=== PATIENT | male | born 1940 | race Two or more races ===

== ENCOUNTER → 2018-09-22 | Outpatient (CLI) | payer OTHER ==
[~2018-09-22] MED LIST: ASA81 MG; DETROL2 MG; METFORMIN HYDRO25 GM
== END | disposition home or self-care (01) ==
LOC: SONOGRAMA 07:15 → RAD 07:15
DX: R10.9 Unspecified abdominal pain (principal); M19.041 Primary osteoarthritis, right hand; M19.071 Primary osteoarthritis, right ankle and foot

== ENCOUNTER 2019-07-04 08:15 | Outpatient (CLI) | payer OTHER | END 2019-07-04 08:19 | disposition home or self-care (01) | LOC: RAD 08:15 | DX: M19.90 Unspecified osteoarthritis, unspecified site (principal) ==

== ENCOUNTER 2020-07-17 07:47 | Outpatient (CLI) | payer OTHER | END 2020-07-17 07:48 | disposition home or self-care (01) | LOC: RAD 07:47 | PROVIDERS: ATTEND Neuromusculoskeletal Medicine, Sports Medicine | DX: J44.9 Chronic obstructive pulmonary disease, unspecified (principal) ==

== ENCOUNTER 2021-01-14 07:25 | Outpatient (CLI) | payer OTHER | END 2021-01-14 07:33 | disposition home or self-care (01) | LOC: RAD 07:25 | PROVIDERS: ATTEND Neuromusculoskeletal Medicine, Sports Medicine | DX: M25.512 Pain in left shoulder (principal); M25.511 Pain in right shoulder; M19.09 Primary osteoarthritis, other specified site ==

== ENCOUNTER 2021-03-04 10:47 | Outpatient (CLI) | payer OTHER | END 2021-03-04 10:52 | disposition home or self-care (01) | LOC: TOM 10:47 | PROVIDERS: ATTEND Neuromusculoskeletal Medicine, Sports Medicine | DX: K57.90 Diverticulosis of intestine, part unspecified, without perforation or abscess without bleeding (principal); R10.84 Generalized abdominal pain; Q61.01 Congenital single renal cyst; I70.8 Atherosclerosis of other arteries ==

== ENCOUNTER → 2021-09-18 | Outpatient (CLI) | payer OTHER | END | disposition home or self-care (01) | LOC: SONOGRAMA 07:40 | PROVIDERS: ATTEND Neuromusculoskeletal Medicine, Sports Medicine | DX: E03.9 Hypothyroidism, unspecified (principal) ==

== ENCOUNTER 2021-09-30 07:31 | Outpatient (CLI) | payer OTHER | END 2021-09-30 07:43 | disposition home or self-care (01) | LOC: RAD 07:31 | DX: Z01.811 Encounter for preprocedural respiratory examination (principal) ==

== ENCOUNTER 2022-07-08 11:43 | Outpatient (CLI) | payer OTHER | END 2022-07-08 11:49 | disposition home or self-care (01) | LOC: RAD 11:43 | DX: M53.86 Other specified dorsopathies, lumbar region (principal); Z13.89 Encounter for screening for other disorder ==

== ENCOUNTER 2023-11-28 07:15 | Outpatient (CLI) | payer OTHER | END 2023-11-28 07:23 | disposition home or self-care (01) | LOC: RAD 07:15 | PROVIDERS: ATTEND Family Medicine | DX: M75.41 Impingement syndrome of right shoulder (principal) ==

== ENCOUNTER 2023-12-13 07:08 | Outpatient (CLI) | payer OTHER | END 2023-12-13 07:12 | disposition home or self-care (01) | LOC: SONOGRAMA 07:08 | PROVIDERS: ATTEND Internal Medicine Gastroenterology | DX: R10.13 Epigastric pain (principal); R63.4 Abnormal weight loss ==

== ENCOUNTER 2024-08-06 12:08 | Outpatient (CLI) | payer OTHER | END 2024-08-06 12:19 | disposition home or self-care (01) | LOC: RAD 12:08 | PROVIDERS: ATTEND Family Medicine | DX: J44.9 Chronic obstructive pulmonary disease, unspecified (principal) ==

== ENCOUNTER 2025-01-31 14:13 | Outpatient (CLI) | payer OTHER | END 2025-01-31 14:36 | disposition home or self-care (01) | LOC: TOM 14:13 | PROVIDERS: ATTEND Family Medicine | DX: S06.5X0A Traumatic subdural hemorrhage without loss of consciousness, initial encounter (principal) ==

== ENCOUNTER 2025-02-05 13:42 | Outpatient (CLI) | payer OTHER | END 2025-02-05 13:47 | disposition home or self-care (01) | LOC: MRI 13:42 | PROVIDERS: ATTEND Family Medicine | DX: S06.5X0A Traumatic subdural hemorrhage without loss of consciousness, initial encounter (principal); X58.XXXA Exposure to other specified factors, initial encounter; Y93.9 Activity, unspecified; Y92.9 Unspecified place or not applicable; Y99.9 Unspecified external cause status | CPT/HCPCS: 70551 ==

== ENCOUNTER 2025-03-06 07:39 | Outpatient (CLI) | payer OTHER | END 2025-03-06 07:47 | disposition home or self-care (01) | LOC: RAD 07:39 | PROVIDERS: ATTEND Family Medicine | DX: N40.1 Benign prostatic hyperplasia with lower urinary tract symptoms (principal); K59.00 Constipation, unspecified ==

== ENCOUNTER → 2025-03-27 | Emergency (ER) | payer OTHER ==
[~2025-03-27] VITALS: Ht 177.8 cm; Wt 73.9 kg
[~2025-03-27] MED LIST changes: +ENALAPRILAT DIHYDRATE 1.25 MG/ML VIAL IV ONE; +SODIUM CHLORIDE 0.45 % 1,000 ML IV STA
[2025-03-27 11:15] LABS: BASO % 0.7 % (0.1-1.2); EOS # 0.25 (0.04-0.54); EOS % 3.0 % (0.7-7.0); LYMPH # 1.80 (1.18-3.74); LYMPH % 21.4 % (19.3-53.1); MEAN PLATELET VOLUME 9.80 fl (9.4-12.4); MONO # 0.69 (0.24-0.82); MONO % 8.2 % (4.7-12.5); NEUT # 5.58 (1.56-6.13); NEUT % 66.2 % (34.0-71.1); RED CELL DISTRIBUTION WIDTH 12.4 % (11.6-14.4)
[2025-03-27 11:33] LABS: INR 1.17
[2025-03-27 11:37] LABS: ALT/SGPT 22.0 U/L (12-78); AST/SGOT 19.0 U/L (15-37); BILIRUBIN TOTAL 2.01 mg/dL (0.3-1.2); BUN CREA RATIO 13.0 (7.0-25.0); CREATININE SERUM 0.82 mg/dL (0.70-1.30); GFR 89.08; GLOBULINA 4.1 G/DL (2.4-3.5); GLUCOSE FASTING 104.0 mg/dL (65-100); OSMOLALITY SERUM 275.0 MOSM/KG (275-295)
[2025-03-27 14:38] LABS: URINE APPEARANCE Clear; URINE BILIRRUBIN Negative (NEGATIVE); URINE BLOOD Negative; URINE COLOR Dark Yellow; URINE GLUCOSE Negative (NEGATIVE); URINE KETONE 15 (NEGATIVE); URINE LEUKOCYTE Negative; URINE NITRATE Negative; URINE PROTEIN 30 (NEGATIVE); URINE UROBILINOGEN 2.0 E.U./dl
[2025-03-27 14:39] LABS: URINE BACTERIA 60.0 uL (0.0-1933); URINE RBC 8.3 uL (0.0-20.8)
[2025-03-27 14:52] LABS: URINE CAST 0.00 uL (0.0-1.40); URINE EPITHELIAL CELLS 1.0 uL (0.0-38.8); URINE WBC 0.3 uL (0.0-23.2)
[2025-03-27 16:31] VITALS: BP 175/89; O2SAT 99
== END | disposition designated cancer center or children's hospital (05) ==
LOC: ER 07:44
PROVIDERS: General Practice
DX: I62.00 Nontraumatic subdural hemorrhage, unspecified (principal); R53.1 Weakness
CPT/HCPCS: 36415; 70450; 70490; 73521; 96365; 99285; J3490